=== PATIENT | male | born 1975 | race Caucasian/White ===

== ENCOUNTER → 2017-04-19 | Outpatient (CLI) | payer BC ==
[~2017-04-19] MED LIST: PRLSR20 PO
--- NOTE | 2017-04-19 09:14 | DIAGNOSTIC IMAGING REPORT ---
CERVICAL SPINE 5 VIEWS CLINICAL HISTORY: Neck pain and stiffness. Left upper extremity radiculopathy. FINDINGS: AP, lateral, bilateral oblique, and odontoid views of the cervical spine are compared to study dated 08/30/2011. The skeletal structures are well mineralized. There is no radiographic evidence of fracture or subluxation. The odontoid process and lateral masses appear intact on the open mouth view. The spinolaminar line is preserved. Vertebral body height and alignment are maintained. There is straightening of the cervical lordosis with mild reversal centered at C4-C5. Small anterior osteophytes are seen at C5-C6. The spinous processes appear intact. The intervertebral disc spaces are normal. There is no evidence of neuroforaminal stenosis on the oblique views. The prevertebral soft tissues are within normal limits. Visualized apical lung parenchyma appears clear. IMPRESSION: No acute bony abnormality is seen involving the cervical spine and there has been no significant change from 08/30/2011. Electronically signed by: Theron Kohler M.D. 04/19/2017 9:13 AM Dictated Date/Time: 04/19/2017 9:12 AM
== END | disposition home or self-care (01) ==
LOC: C.RDSM 09:00
PROVIDERS: ATTEND Physician Assistant
DX: M54.2 Cervicalgia (principal)

== ENCOUNTER 2018-01-11 16:12 | Emergency (ER) | payer BC, OTHER ==
[~2018-01-11] VITALS: Ht 185.4 cm; Wt 92.3 kg
[2018-01-11 16:24] VITALS: TEMP 36.9; Ht 185.4 cm; Wt 92.3 kg
[2018-01-11] MEDS ORDERED: PROCHLORPERAZINE 5 MG/ML 2 ML VIAL IV STA (18:15)
[2018-01-11] MEDS ORDERED: DiphenhydrAMINE HCL 50 MG/ML VIAL IV STA (18:15)
[2018-01-11] MEDS ORDERED: SODIUM CHLORIDE 0.9% 500ML 500 ML IV STA (18:15)
--- NOTE | 2018-01-11 18:17 | EMERGENCY ROOM VISIT NOTE ---
History Report prepared by Aric: Jabari Kidd Under the Supervision of: Dr. Dakota Lopez M.D. First contact with patient: 17:52 Chief Complaint: HEADACHE Stated Complaint: SAW BLINKING LIGHTS,HEADACHE,SOME TINGLING IN LT H History of Present Illness The patient is a 42 year old white male with no significant past medical history , who presents to the Emergency Room with complaints of a headache that began earlier this afternoon, a few hours ago, while he was at work. The headache is described as "dull and slightly burning" and he notes that it is mostly in the left side of the head. The patient states that he started to notice some vision irregularities while sitting at this desk today. He described the irregularities as flashing lights in the upper corners of his visual sun. He also say what looked like "a bar of Red, Green, and blue." The patient also complains of "pins and needles" in the fingers of his left hand, and down the left jaw. He also currently feels more tired than usual. The patient denies any focal weakness or nausea/vomiting. Source of History: patient Onset: A few hours ago Position: head (headache), eye (bilateral) Quality: burning (head), dull (head), other (Flashing lights in vision) Associated Symptoms: No nausea, No vomiting, No weakness Note: Pins and needles in left fingers, left jaw Review of Systems See HPI for pertinent positives and negatives. A total of ten systems were reviewed and were otherwise negative. Past Medical & Surgical None stated by patient. Family History Cancer Diabetes mellitus Heart disease Hypertension Social History Smoking Status: Never Smoker Alcohol Use: occasionally Marital Status: Current/Historical Medications Scheduled Azelastine Hcl (Astelin Nasal [place]), 1-2 SPRAYS NA BID Loratadine & Pseudoephedrine (Claritin-D 24 Hour), 1 TAB PO DAILY Pantoprazole (Protonix), 40 MG PO BID Scheduled PRN Fluticasone Propionate (Nasal) (Flonase Allergy Relief), 2 SPRAYS MALLIKA DAILY PRN for Allergy Symptoms Allergies Coded Allergies: Penicillins (Verified Allergy, Unknown, RASH, 01/11/18) Sulfa Drugs (Verified Allergy, Unknown, RASH, 01/11/18) Physical Exam Vital Signs Date Time Temp Pulse Resp B/P (MAP) Pulse Ox O2 Delivery O2 Flow Rate FiO2 01/11/18 19:01 73 12 110/69 99 Room Air 01/11/18 19:01 99 Room Air 01/11/18 16:24 36.9 70 18 151/81 98 Room Air Physical Exam GENERAL: Awake, alert, well-appearing, NAD HENT: Normocephalic, atraumatic. EYES: Normal conjunctiva. Sclera non-icteric. NECK: Supple. No nuchal rigidity. FROM. RESPIRATORY: CTAB, no rhonchi, wheezing, crackles CARDIAC: RRR, no MRG ABDOMEN: Soft, NTND, BS+ MSK: No chest wall TTP, no LE edema NEURO: CN 2-12 intact, 5/5 upper and lower extremity strength, no dysmetria, no drift, good finger to nose, no sensory deficits. SKIN: No rash or jaundice noted. Medical Decision & Procedures ER Provider Diagnostic Interpretation: Radiology results as stated below per my review and radiologist interpretation: CHEST ONE VIEW PORTABLE CLINICAL HISTORY: SEIZURE COMPARISON STUDY: No previous studies for comparison. FINDINGS: Lung volumes are normal. No pneumothorax or pleural effusion is noted. Lungs are clear. Cardiac size is normal. Mediastinal contours are normal. There is no evidence for pulmonary edema. IMPRESSION: No acute cardiopulmonary findings. Electronically signed by: Madan Pryor M.D. 01/11/2018 6:59 PM Dictated Date/Time: 01/11/2018 6:[address]AST CT DOSE: 537.48 mGy.cm HISTORY: SEIZURE TECHNIQUE: Multiaxial CT images of the head were performed without the use of intravenous contrast. Automated exposure control was utilized for this study. A dose lowering technique was utilized adhering to the principles of ALARA. Comparison: None. Findings: The paranasal sinuses and mastoid air cells are clear. The calvarium and skull base are intact. The ventricles and sulci are within normal limits. There is no mass, hematoma, midline shift, or acute infarct. Impression: No acute intracranial abnormality. If this is the patient's first reported seizure then follow-up nonemergent brain MRI is recommended for further evaluation. Electronically signed by: Marc Park M.D. 01/11/2018 7:17 PM Dictated Date/Time: 01/11/2018 7:13 PM Laboratory Results 01/11/18 18:30 Red Blood Count 4.78, Mean Corpuscular Volume 86.4, Mean Corpuscular Hemoglobin 31.8, Mean Corpuscular Hemoglobin Concent 36.8, Mean Platelet Volume 10.2, Neutrophils (%) (Auto) 63.2, Lymphocytes (%) (Auto) 26.0, Monocytes (%) (Auto) 7.9, Eosinophils (%) (Auto) 2.3, Basophils (%) (Auto) 0.3, Neutrophils # (Auto) 4.31, Lymphocytes # (Auto) 1.77, Monocytes # (Auto) 0.54, Eosinophils # (Auto) 0.16, Basophils # (Auto) 0.02 01/11/18 18:30 Test 01/11/18 18:30 White Blood Count 6.82 K/uL (4.8-10.8) Red Blood Count 4.78 M/uL (4.7-6.1) Hemoglobin 15.2 g/dL (14.0-18.0) Hematocrit 41.3 % (42-52) Mean Corpuscular Volume 86.4 fL (80-100) Mean Corpuscular Hemoglobin 31.8 pg (25-34) Mean Corpuscular Hemoglobin Concent 36.8 g/dl (32-36) Platelet Count 228 K/uL (130-400) Mean Platelet Volume 10.2 fL (7.4-10.4) Neutrophils (%) (Auto) 63.2 % Lymphocytes (%) (Auto) 26.0 % Monocytes (%) (Auto) 7.9 % Eosinophils (%) (Auto) 2.3 % Basophils (%) (Auto) 0.3 % Neutrophils # (Auto) 4.31 K/uL (1.4-6.5) Lymphocytes # (Auto) 1.77 K/uL (1.2-3.4) Monocytes # (Auto) 0.54 K/uL (0.11-0.59) Eosinophils # (Auto) 0.16 K/uL (0-0.5) Basophils # (Auto) 0.02 K/uL (0-0.2) RDW Standard Deviation 40.8 fL (36.4-46.3) RDW Coefficient of Variation 12.9 % (11.5-14.5) Immature Granulocyte % (Auto) 0.3 % Immature Granulocyte # (Auto) 0.02 K/uL (0.00-0.02) Prothrombin Time 10.6 SECONDS (9.0-12.0) Prothromb Time International Ratio 1.0 (0.9-1.1) Activated Partial Thromboplast Time 24.5 SECONDS (21.0-31.0) Partial Thromboplastin Ratio 0.9 Anion Gap 8.0 mmol/L (3-11) Est Creatinine Clear Calc Drug Dose 112.1 ml/min Estimated GFR () 110.5 Estimated GFR (Non- 95.4 BUN/Creatinine Ratio 12.5 (10-20) Calcium Level 9.5 mg/dl (8.5-10.1) Thyroid Stimulating Hormone (TSH) 2.370 uIu/ml (0.300-4.500) Laboratory results reviewed by me Medications Administered Medications (Trade) Dose Ordered Sig/Carlos Route Start Time Stop Time Status Last Admin Dose Admin Diphenhydramine HCl (Benadryl Inj) 25 mg NOW STAT IV 01/11/18 18:15 01/11/18 18:18 DC 01/11/18 18:56 25 MG Prochlorperazine Edisylate (Compazine Inj) 10 mg NOW STAT IV 01/11/18 18:15 01/11/18 18:18 DC 01/11/18 18:56 10 MG Sodium Chloride 500 ml @ 999 mls/hr Q31M STAT IV 01/11/18 18:15 01/11/18 18:45 DC 01/11/18 18:55 999 MLS/HR ED Course 1804: The patient was evaluated in room C8. A complete history and physical exam was performed. 1814: Ordered Sodium Chloride 500 mL @ 999 mL/hr IV, Compazine 10 mg IV, Benadryl 25 mg IV. 1943: I reevaluated the patient. Discussed results and discharge instructions: he verbalized understanding and agreement. The patient is ready for discharge. Medical Decision The patient is a 42 year old white male with no significant past medical history , who presents to the Emergency Room with complaints of a headache that began earlier this afternoon, a few hours ago, while he was at work. Differential diagnosis: Etiologies such as migraine headache, meningitis, sinusitis, CO exposure, ICH, SAH, infection, tumor, headache, sinus thrombosis, arterial dissection, as well as others were entertained. Patient was seen and evaluated at the bedside. Patient did come in with complaints of having some visual changes. Patient noted that he saw some different colors and flashing lights in his bilateral peripheral sun. Patient then developed a mild headache. Patient states that this was nonexertional. Patient has no prior history of migraines or seizures. Patient did complain of some mild tingling in his fingers as well as left side of his face. Of note the patient was complaining some mild dental pain and was concerned about swimmer's ear. On exam the patient had a nonfocal neurologic exam. No signs of meningismus. Patient had full range of motion of the neck. No dysmetria. Patient did not have any visual field deficits. No nystagmus. Patient did have blood work completed along with a CT of the brain and chest x- ray. Patient's chest x-ray clear. CT brain negative acute. The patient's blood work was otherwise fairly unremarkable. The patient's headache did resolve after being given medications for symptoms. Given the patient's symptomatic complaints this sounds most likely to be either a complicated migraine or migraine with aura. We discussed the possibility simple seizure. The patient again had resolution of the symptoms. I did discuss the patient's follow-up with his PCP for further evaluation, follow-up, and treatment. Patient was given warning signs for which to return. Patient was agreeable to this plan of care. Patient was given strict follow-up, discharge, and return precautions. All questions were answered. Patient was deemed suitable for outpatient follow-up at this time. Patient agreed with the plan of care and was safely discharged home. Medication Reconcilliation Current Medication List: was personally reviewed by me Blood Pressure Screening Patient's blood pressure: Elevated blood pressure Blood pressure disposition: Elevated BP felt to be situational Impression Primary Impression: Migraine Scribe Attestation The scribe's documentation has been prepared under my direction and personally reviewed by me in its entirety. I confirm that the note above accurately reflects all work, treatment, procedures, and medical decision making performed by me. Departure Information Dispostion Home / Self-Care Referrals Liane Clark M.D. (PCP) Patient Instructions ED Headache Migraine, My [facility] Additional Instructions Please return to the emergency department if you have worsening or recurrent symptoms not amenable to at-home treatment. Please call for a follow-up appointment with her primary care physician. Please take your medications as prescribed. If you have other concerns and/or complaints please feel free to also call your primary care physician's office or return the ED for further evaluation, management, and treatment. Please return if you have worsening headache, difficulty with word finding, difficulty with speech, numbness, or weakness. Please follow-up with your PCP within the next week. You may take 600 mg Ibuprofen every 6 hours as needed for pain with food for no more than 2 consecutive days. You may take tylenol 1000 mg every 6 hours as needed for pain. You may take motrin and tylenol separately or at the same time. Take your medications as prescribed. You have been examined and treated today on an emergency basis only. This is not a substitute for, or an effort to provide, complete comprehensive medical care. It is impossible to recognize and treat all injuries or illnesses in a single emergency department visit. It is therefore important that you follow up closely with [facility], your PCP, and/or your specialist(s). Call as soon as possible for an appointment. Thank you for your time and consideration. I look forward to speaking with you again soon. Please don't hesitate to call us if you have any questions. Problem Qualifiers Primary Impression: Migraine Migraine type: with aura Status migrainosus presence: without status migrainosus Intractability: not intractable Qualified Codes: G43.109 - Migraine with aura, not intractable, without status migrainosus
[2018-01-11] MEDS ORDERED: ASTN (18:27)
[2018-01-11] MEDS ORDERED: FLUT0.15 NAE (18:27)
[2018-01-11] MEDS ORDERED: LORA-749 PO (18:27)
[2018-01-11] MEDS ORDERED: PANT40TA PO (18:27)
[2018-01-11 18:41] LABS: BASO % 0.3 %; BASO ABS # 0.02 K/uL (0-0.2); EOS % 2.3 %; EOS ABS # 0.16 K/uL (0-0.5); HEMATOCRIT 41.3 % (42-52); HEMOGLOBIN 15.2 g/dL (14.0-18.0); IG# 0.02 K/uL (0.00-0.02); LYMPH ABS # 1.77 K/uL (1.2-3.4); MEAN CELL VOLUME 86.4 fL (80-100); MEAN CORPUSCULAR HEMOGLOBIN 31.8 pg (25-34); MEAN CORPUSCULAR HGB CONC 36.8 g/dl (32-36); MEAN PLATELET VOLUME 10.2 fL (7.4-10.4); MONO % 7.9 %; MONO ABS # 0.54 K/uL (0.11-0.59); NEUT % 63.2 %; NEUT ABS # 4.31 K/uL (1.4-6.5); PLATELET COUNT 228 K/uL (130-400); RED CELL DISTRIBUTION WIDTH CV 12.9 % (11.5-14.5); RED CELL DISTRIBUTION WIDTH SD 40.8 fL (36.4-46.3); WHITE BLOOD COUNT 6.82 K/uL (4.8-10.8)
[2018-01-11 19:00] LABS: PTT PATIENT 24.5 SECONDS (21.0-31.0)
--- NOTE | 2018-01-11 19:00 | DIAGNOSTIC IMAGING REPORT ---
CHEST ONE VIEW PORTABLE CLINICAL HISTORY: SEIZURE COMPARISON STUDY: No previous studies for comparison. FINDINGS: Lung volumes are normal. No pneumothorax or pleural effusion is noted. Lungs are clear. Cardiac size is normal. Mediastinal contours are normal. There is no evidence for pulmonary edema. IMPRESSION: No acute cardiopulmonary findings. Electronically signed by: Madan Pryor M.D. 01/11/2018 6:59 PM Dictated Date/Time: 01/11/2018 6:58 PM
[2018-01-11 19:01] VITALS: O2SAT 99
[2018-01-11 19:02] LABS: CALCIUM 9.5 mg/dl (8.5-10.1); CREATININE 0.98 mg/dl (0.60-1.40); POTASSIUM 3.7 mmol/L (3.5-5.1)
--- NOTE | 2018-01-11 19:19 | DIAGNOSTIC IMAGING REPORT ---
HEAD CT NONCONTRAST CT DOSE: 537.48 mGy.cm HISTORY: SEIZURE TECHNIQUE: Multiaxial CT images of the head were performed without the use of intravenous contrast. Automated exposure control was utilized for this study. A dose lowering technique was utilized adhering to the principles of ALARA. Comparison: None. Findings: The paranasal sinuses and mastoid air cells are clear. The calvarium and skull base are intact. The ventricles and sulci are within normal limits. There is no mass, hematoma, midline shift, or acute infarct. Impression: No acute intracranial abnormality. If this is the patient's first reported seizure then follow-up nonemergent brain MRI is recommended for further evaluation. Electronically signed by: Marc Park M.D. 01/11/2018 7:17 PM Dictated Date/Time: 01/11/2018 7:13 PM
[2018-01-11 19:46] VITALS: BP 127/79; PULSE 81; O2SAT 98
== END 2018-01-11 19:47 | disposition home or self-care (01) ==
LOC: C.EDB 16:14 → C.EDC 19:47
DX: G43.109 Migraine with aura, not intractable, without status migrainosus (principal); R20.0 Anesthesia of skin; K08.89 Other specified disorders of teeth and supporting structures; Z88.2 Allergy status to sulfonamides; Z88.0 Allergy status to penicillin; Z83.3 Family history of diabetes mellitus; Z82.49 Family history of ischemic heart disease and other diseases of the circulatory system